=== PATIENT | female | born 1965 | race Caucasian/White ===

== ENCOUNTER 2017-01-27 10:16 | Outpatient (CLI) | payer OTHER | END 2017-01-27 23:00 | LOC: LAB SRH 10:16 | DX: R94.6 Abnormal results of thyroid function studies (principal) | CPT/HCPCS: 90074; 93010; 93045; 93069; 93075 ==

== ENCOUNTER → 2017-02-03 | Outpatient (CLI) | payer OTHER | LOC: LAB SRH 10:30 | DX: R61 Generalized hyperhidrosis (principal) | CPT/HCPCS: 90074; 91219; 95059; 97097 ==